=== PATIENT | male | born 1965 | race Caucasian/White ===

== ENCOUNTER 2021-11-21 13:26 | Emergency (ER) | payer OTHER ==
[~2021-11-21] VITALS: Ht 172.7 cm; Wt 86.2 kg
[2021-11-21] MEDS ORDERED: ASPI325EC PO (13:55)
== END 2021-11-21 15:48 | disposition home or self-care (01) ==
LOC: ER 13:26
DX: M66.0 Rupture of popliteal cyst (principal); I25.2 Old myocardial infarction; Z87.891 Personal history of nicotine dependence
CPT/HCPCS: 76882; 93971; 99283-25